=== PATIENT | female | born 1985 | race American Indian/Alaskan Native ===

== ENCOUNTER 2017-11-11 14:22 | Inpatient (IN) | payer SELFPAY ==
[2017-11-11] MEDS ORDERED: TYLENOL PO STA (15:52)
[2017-11-11] MEDS ORDERED: NACL 0.9% 500 ML 500 ML IV ONE (15:52)
[2017-11-11 16:15] LABS: Hematocrit 36.6 % (30.3-42.9); Hemoglobin 11.8 gm/dl (10.1-14.3); Mean Corpuscular HGB Conc 32 % (30-34); Mean Corpuscular Volume 76 fl (79-97); Platelet Count 282 K/mm3 (140-440); Red Blood Count 4.84 M/mm3 (3.65-5.03); Red Cell Distribution Width 18.6 % (13.2-15.2)
[2017-11-11 16:25] LABS: INR 1.03 (0.87-1.13)
[2017-11-11 16:42] LABS: Alanine Aminotransferase 8 units/L (7-56); Albumin 4.4 g/dL (3.9-5); BUN/Creatinine Ratio 11; Blood Urea Nitrogen 10 mg/dL (7-17); Calcium 9.6 mg/dL (8.4-10.2); Hemolysis Index 6
--- NOTE | 2017-11-11 16:51 | XRay Report ---
FINAL REPORT EXAM: XR CHEST 1V AP HISTORY: possible Sepsis TECHNIQUE: Frontal portable examination of the chest PRIORS: None FINDINGS: There is no visible pulmonary consolidation, pleural effusion, or pneumothorax. Cardiac silhouette size is normal without vascular congestion. No visible acute displaced fracture in the regional skeleton. IMPRESSION: No acute cardiopulmonary disease in the visualized chest
[2017-11-11 17:01] LABS: Mean Corpuscular Hemoglobin 24 pg (28-32)
--- NOTE | 2017-11-11 18:57 | Cat Scan Report ---
FINAL REPORT EXAM: CT ABDOMEN PELVIS WO CON HISTORY: RLQ pain, tenderness, fever TECHNIQUE: CT examination of the ABDOMEN without IV contrast CT examination of the PELVIS without IV contrast PRIORS: None. FINDINGS: Smoothly marginated hypodense right hepatic lobe lesions are nonspecific and statistically most likely reflect cysts and/or hemangiomas. They are too small to characterize. Normal noncontrast appearance of the gallbladder, adrenals, pancreas, and spleen. Normal caliber abdominal aorta and IVC. Right lower abdomen and upper right pelvis location of right kidney is nonspecific. This may reflect developmental variation or transplant. No definite right hydronephrosis. Sagittal images suggest 1 mm nonobstructing right renal calculus. Right ureter is obscured by adjacent anatomy. Normal noncontrast appearance of the left kidney and proximal left ureter. No left hydronephrosis. Left distal ureter obscured by adjacent anatomy. Small fat containing umbilical hernia. It also contains a short knuckle of normal-appearing small intestine. No inguinal hernia. No retroperitoneal adenopathy. No evidence of mesenteric mass. Normal-appearing stomach and duodenum. No small bowel distention in the abdomen and pelvis. No pelvic free fluid. Normal-appearing urinary bladder, uterus, and adnexa. Normal-appearing rectum and sigmoid colon. No gross ascites, free air, or colonic distention. Scattered prominence of stool and gas in the colon may reflect paralytic ileus Normal-appearing cecum and terminal ileum. The appendix is not separately identified. There is nonspecific slight fat stranding and trace free fluid in the right lower quadrant adjacent to the distal cecum. This may reflect mild inflammation or infection, although source cannot be identified at CT. The examination is limited by lack of IV and oral contrast. IMPRESSION: Appendix not separately identified. Slight fat stranding and trace free fluid in the right lower quadrant is noted adjacent to the distal cecum. This may reflect mild inflammation or infection although source not identified on noncontrast CT with examination limited by lack of IV and oral contrast Right kidney is located in the right lower abdomen/right upper pelvis. This may be developmental variation or reflect renal transplant. It appears to contain a subtle 1 mm nonobstructing calculus. No evidence of right hydronephrosis although the right ureter is obscured Small umbilical hernia containing mesenteric fat and short knuckle of normal-appearing small intestine. No CT evidence of intestinal obstruction Scattered prominence of stool and gas in the colon may reflect paralytic ileus
[2017-11-11 19:04] LABS: Monocytes % (Manual) 3.5 % (0.0-7.3); Total Cells Counted 200
[2017-11-11 19:05] LABS: Basophils % (Manual) 0 % (0.0-1.8); Eosinophils % (Manual) 0 % (0.0-4.3)
[2017-11-11 19:06] LABS: Anisocytosis 1+; Platelet Estimate Consistent w Auto
--- NOTE | 2017-11-11 21:50 | Emergency Department Report ---
ED Abdominal Pain HPI - General Chief Complaint: Abdominal Pain Stated Complaint: PAIN ALL OVER Time Seen by Provider: 11/11/17 21:47 Source: patient Mode of arrival: Ambulatory Limitations: No Limitations - History of Present Illness Initial Comments: Patient is 32 years old female with no significant past medical history. Patient presented to the ER complaining of right lower quadrant pain since yesterday. Patient stated that pain associated with nausea vomiting and fever. Patient stated that she had one episode of diarrhea also. MD Complaint: abdominal pain Location: RLQ Radiation: none Migration to: no migration Severity scale (0 -10): 6 Quality: sharp - Related Data Previous Rx's Medication Instructions Recorded Last Taken Type Penicillin Vk [Veetids TAB] 500 mg PO QID #28 tablet 12/15/14 Unknown Rx traMADol [Ultram 50 MG tab] 50 mg PO TID PRN #15 tablet 12/15/14 Unknown Rx Allergies Allergy/AdvReac Type Severity Reaction Status Date / Time No Known Allergies Allergy Unverified 12/15/14 13:39 ED Review of Systems ROS: Stated complaint: PAIN ALL OVER Other details as noted in HPI Comment: All other systems reviewed and negative Constitutional: chills, fever ENT: denies: ear pain, throat pain, dental pain, hearing loss, epistaxis Cardiovascular: denies: chest pain, palpitations, dyspnea on exertion Gastrointestinal: abdominal pain, nausea, vomiting, diarrhea. denies: constipation, hematemesis, melena, hematochezia Genitourinary: denies: urgency, dysuria, frequency, hematuria, discharge, abnormal menses Neurological: denies: headache, weakness, numbness, paresthesias, confusion, abnormal gait ED Past Medical Hx - Past Medical History Previous Medical History?: No - Surgical History Past Surgical History?: Yes Additional Surgical History: X 3 - Social History Smoking Status: Never Smoker Substance Use Type: None - Medications Home Medications: Home Medications Medication Instructions Recorded Confirmed Last Taken Type Penicillin Vk [Veetids TAB] 500 mg PO QID #28 tablet 12/15/14 Unknown Rx traMADol [Ultram 50 MG tab] 50 mg PO TID PRN #15 tablet 12/15/14 Unknown Rx ED Physical Exam - General Limitations: No Limitations General appearance: alert, in no apparent distress - Head Head exam: Present: atraumatic, normocephalic, normal inspection - Eye Eye exam: Present: normal appearance, PERRL - ENT ENT exam: Present: normal exam, normal orophraynx, mucous membranes moist - Neck Neck exam: Present: normal inspection, full ROM. Absent: tenderness, meningismus, lymphadenopathy, thyromegaly - Respiratory Respiratory exam: Present: normal lung sounds bilaterally. Absent: respiratory distress, wheezes, rales, rhonchi, stridor, chest wall tenderness, accessory muscle use, decreased breath sounds, prolonged expiratory - Cardiovascular Cardiovascular Exam: Present: regular rate, normal rhythm, normal heart sounds - GI/Abdominal GI/Abdominal exam: Present: soft, tenderness (right lower quadrant tenderness), guarding, rebound, normal bowel sounds. Absent: distended, rigid, organomegaly , mass, bruit, pulsatile mass, hernia - Extremities Exam Extremities exam: Present: normal inspection, full ROM, normal capillary refill. Absent: pedal edema, calf tenderness - Back Exam Back exam: Present: normal inspection, full ROM. Absent: tenderness, CVA tenderness (R), CVA tenderness (L), muscle spasm, paraspinal tenderness, vertebral tenderness - Neurological Exam Neurological exam: Present: alert, oriented X3, CN II-XII intact, normal gait, reflexes normal - Skin Skin exam: Present: warm, intact, normal color ED Course Vital Signs 11/11/17 11/11/17 15:47 21:22 Temperature 100.5 F H 98.5 F Pulse Rate 119 H 103 H Respiratory 18 20 Rate Blood Pressure 124/78 Blood Pressure 118/72 [Left] O2 Sat by Pulse 99 100 Oximetry ED Medical Decision Making - Lab Data Result diagrams: 11/11/17 15:55 11/11/17 15:55 - Radiology Data Radiology results: report reviewed Referring Physician: GREG ALVES Patient Name: MANAS HOYOS Date of : 1985 Sex: Female Report Date: 2017-11-11 Report Status: Finalized Findings [facility] [address] [place] [address] Cat Scan Report Signed Patient: MANAS HOYOS MR#: [id number] : 1985 Acct:[id number] Age/Sex: 32 / F ADM Date: 11/11/17 Loc: ED Attending Dr: Ordering Physician: GREG ALVES MD Date of Service: 11/11/17 Procedure(s): CT abdomen pelvis wo con Accession Number(s): [id number] cc: GREG ALVES MD FINAL REPORT EXAM: CT ABDOMEN PELVIS WO CON HISTORY: RLQ pain, tenderness, fever TECHNIQUE: CT examination of the ABDOMEN without IV contrast CT examination of the PELVIS without IV contrast PRIORS: None. FINDINGS: Smoothly marginated hypodense right hepatic lobe lesions are nonspecific and statistically most likely reflect cysts and/or hemangiomas. They are too small to characterize. Normal noncontrast appearance of the gallbladder, adrenals, pancreas, and spleen. Normal caliber abdominal aorta and IVC. Right lower abdomen and upper right pelvis location of right kidney is nonspecific. This may reflect developmental variation or transplant. No definite right hydronephrosis. Sagittal images suggest 1 mm nonobstructing right renal calculus. Right ureter is obscured by adjacent anatomy. Normal noncontrast appearance of the left kidney and proximal left ureter. No left hydronephrosis. Left distal ureter obscured by adjacent anatomy. Small fat containing umbilical hernia. It also contains a short knuckle of normal-appearing small intestine. No inguinal hernia. No retroperitoneal adenopathy. No evidence of mesenteric mass. Normal-appearing stomach and duodenum. No small bowel distention in the abdomen and pelvis. No pelvic free fluid. Normal-appearing urinary bladder, uterus, and adnexa. Normal-appearing rectum and sigmoid colon. No gross ascites, free air, or colonic distention. Scattered prominence of stool and gas in the colon may reflect paralytic ileus Normal-appearing cecum and terminal ileum. The appendix is not separately identified. There is nonspecific slight fat stranding and trace free fluid in the right lower quadrant adjacent to the distal cecum. This may reflect mild inflammation or infection, although source cannot be identified at CT. The examination is limited by lack of IV and oral contrast. IMPRESSION: Appendix not separately identified. Slight fat stranding and trace free fluid in the right lower quadrant is noted adjacent to the distal cecum. This may reflect mild inflammation or infection although source not identified on noncontrast CT with examination limited by lack of IV and oral contrast Right kidney is located in the right lower abdomen/right upper pelvis. This may be developmental variation or reflect renal transplant. It appears to contain a subtle 1 mm nonobstructing calculus. No evidence of right hydronephrosis although the right ureter is obscured Small umbilical hernia containing mesenteric fat and short knuckle of normal-appearing small intestine. No CT evidence of intestinal obstruction Scattered prominence of stool and gas in the colon may reflect paralytic ileus Transcribed By: JUDI Dictated By: RODRIGO LEMUS MD Electronically Authenticated By: RODRIGO LEMUS MD Signed Date/Time: 11/11/171855 DD/ 55 TD/TT: 11/11/171855 Referring Physician: GAMA KENDRICK Patient Name: MANAS HOYOS Date of : 1985 Sex: Female Report Date: 2017-11-12 Report Status: Finalized Findings [facility] [address] [place] [address] Cat Scan Report Signed Patient: MANAS HOYOS MR#: [id number] : 1985 Acct:[id number] Age/Sex: 32 / F ADM Date: 11/11/17 Loc: ED Attending Dr: Ordering Physician: GAMA KENDRICK Date of Service: 11/11/17 Procedure(s): CT abdomen pelvis w con Accession Number(s): [id number] cc: GAMA KENDRICK FINAL REPORT PROCEDURE: CT ABDOMEN PELVIS W CON TECHNIQUE: Computerized axial tomography of the abdomen and pelvis was performed after the IV injection of iodinated nonionic contrast. HISTORY: abdominal pain COMPARISON: 11/11/2017 FINDINGS: Visualized lower thorax: No significant abnormality. Liver: Normal size and attenuation. Spleen: Normal size and attenuation. Gallbladder and biliary system: Normal. Pancreas: Normal. Adrenals: Normal. Kidneys: The left kidney has a normal size. No hydronephrosis. The right kidney is identified within the pelvis. No hydronephrosis.. GI tract: The stomach is normal. There are a few loops of slightly dilated fluid-filled small bowel in the right lower abdomen, an ileus is suspected in this region. No obstruction is seen. Terminal ileum is normal. The cecum has a normal appearance. The appendix is normal.. Lymph nodes and mesentery: Normal. Vasculature: Normal. Bladder: Normal. Reproductive organs: A 2 centimeter cyst on the left ovary is noted. Slight fluid in the lower pelvis.. Peritoneum: Slight fluid lower pelvis.. Musculoskeletal structures: No significant abnormality. Other: None. IMPRESSION: There is no evidence of intestinal or urinary tract obstruction. A slight ileus in the right lower quadrant involving a few loops of small bowel is noted. The appendix is normal. There is a pelvic right kidney. No evidence of hydronephrosis. Transcribed By: [facility] Dictated By: AIMEE ALVES MD Electronically Authenticated By: AIMEE ALVES MD Signed Date/Time: 11/12/17122 DD/ 2 TD/TT: 11/12/17122 - Medical Decision Making Ms Hoyos is 32 years old female with no significant past medical history. Patient presented to the ER complaining of right lower quadrant pain since yesterday. Patient stated that pain associated with nausea vomiting and fever. Patient stated that she had one episode of diarrhea also. Initial CT abdomen and pelvis was done without contrast which she she'll also examination of the right lower quadrant area. I discussed the patient was Dr. Sam, he advised to do a CT abdomen and pelvis with IV and by mouth contrast. CT abdomen and pelvis showed no evidence of acute appendicitis possible ileus at right lower quadrant region. He advised to admit the patient to the hospitalist and he will see the patient in the morning. I discussed the patient was Dr. Engel also, he agreed to admit the patient to medical service. Critical Care Time: Yes Critical care time in (mins) excluding proc time.: 30 Critical care attestation.: If time is entered above; I have spent that time in minutes in the direct care of this critically ill patient, excluding procedure time. ED Disposition Clinical Impression: Abdominal pain, Ileitis Disposition: OP ADMIT IP TO THIS HOSP Is pt being admited?: Yes Condition: Stable Instructions: Abdominal Pain (ED) Referrals: DOC,ED, MD [Primary Care Provider] - 3-5 Days
[2017-11-11] MEDS ORDERED: MORPHINE IV ONE (21:56)
[2017-11-11] MEDS ORDERED: ZOFRAN IV ONE (21:56)
[2017-11-11] MEDS ORDERED: ZOSYN/NS 4.5GM/100ML 4.5 GM/100 ML VIAL IV ONE (21:56)
[2017-11-11] MEDS ORDERED: NACL 0.9% 1000 ML 1,000 ML IV ONE (21:57)
--- NOTE | 2017-11-12 01:25 | Cat Scan Report ---
FINAL REPORT PROCEDURE: CT ABDOMEN PELVIS W CON TECHNIQUE: Computerized axial tomography of the abdomen and pelvis was performed after the IV injection of iodinated nonionic contrast. HISTORY: abdominal pain COMPARISON: 11/11/2017 FINDINGS: Visualized lower thorax: No significant abnormality. Liver: Normal size and attenuation. Spleen: Normal size and attenuation. Gallbladder and biliary system: Normal. Pancreas: Normal. Adrenals: Normal. Kidneys: The left kidney has a normal size. No hydronephrosis. The right kidney is identified within the pelvis. No hydronephrosis.. GI tract: The stomach is normal. There are a few loops of slightly dilated fluid-filled small bowel in the right lower abdomen, an ileus is suspected in this region. No obstruction is seen. Terminal ileum is normal. The cecum has a normal appearance. The appendix is normal.. Lymph nodes and mesentery: Normal. Vasculature: Normal. Bladder: Normal. Reproductive organs: A 2 centimeter cyst on the left ovary is noted. Slight fluid in the lower pelvis.. Peritoneum: Slight fluid lower pelvis.. Musculoskeletal structures: No significant abnormality. Other: None. IMPRESSION: There is no evidence of intestinal or urinary tract obstruction. A slight ileus in the right lower quadrant involving a few loops of small bowel is noted. The appendix is normal. There is a pelvic right kidney. No evidence of hydronephrosis.
[2017-11-12 01:38] LABS: Bacteria,Urine 1+ /HPF (Negative); Bilirubin,Urine NEG (Negative); Blood,Urine NEG (Negative); Color,Urine Yellow (Yellow); Mucus,Urine FEW /HPF; Urobilinogen,Urine < 2.0 mg/dL (<2.0)
[2017-11-12 02:11] LABS: HCG Qualitative,Urine Negative (Negative)
[2017-11-12] MEDS ORDERED: ZOFRAN IV PRN (03:02)
--- NOTE | 2017-11-12 03:39 | History and Physical Report ---
CHIEF COMPLAINT: Abdominal pain. HISTORY OF PRESENT ILLNESS: The patient is a 32-year-old female, who presented to the Emergency Room with right lower quadrant abdominal pain going on since 11/10/2017. The pain is sharp in consistency and is associated with nausea, vomiting and diarrhea. There is also history of fever with no history of chills. There is no history of dysuria or painful micturition. The patient also denied history of dizziness, shortness of breath or chest pain. PAST MEDICAL HISTORY: Unremarkable. PAST SURGICAL HISTORY: Pertinent for C-sections x 3. FAMILY HISTORY: Noncontributory. SOCIAL HISTORY: The patient does not smoke, does not drink alcohol and does not use illicit drugs. MEDICATIONS: The patient is on penicillin VK 500 mg by mouth 4 times a day. Also, the patient is on tramadol 50 mg by mouth 3 times a day as needed for pain. ALLERGIES: There are no known drug allergies. REVIEW OF SYSTEMS: CONSTITUTIONAL: There is fever, no chills, no diaphoresis. HEENT: There is no headache or sore throat. CARDIOVASCULAR SYSTEM: There is no chest pain or orthopnea. RESPIRATORY SYSTEM: There is no shortness of breath or cough. GASTROINTESTINAL SYSTEM: There is right lower quadrant abdominal pain, nausea, vomiting and diarrhea. There is no hematochezia or hematemesis or melena. NEUROLOGICAL SYSTEM: There is no numbness, no dizziness, no altered mental status. MUSCULOSKELETAL SYSTEM: There is no joint pain or swelling. DERMATOLOGICAL SYSTEM: There is no skin rash or itching. GENITOURINARY SYSTEM: There is no dysuria, hematuria, or flank pain. Rest of system review is normal. PHYSICAL EXAMINATION: GENERAL: At the time of exam, the patient was found to be alert, oriented x 3 and not in acute distress. VITAL SIGNS: On the initial time of presentation showed temperature of 105 degrees Fahrenheit, pulse of 109, respirations 18, blood pressure 124/78, and O2 sat of 99% on room air. HEENT: Showed pupils to be equal, round, reactive to light and accommodation. Extraocular muscles are intact. NECK: Supple, with no JVD or carotid bruit. CARDIOVASCULAR SYSTEM: Showed normal first and second heart sounds with no gallops or murmurs. RESPIRATORY SYSTEM: Showed good air entry on both sides of the lungs with no abnormal breath sounds. GASTROINTESTINAL SYSTEM: Showed abdomen to be full and soft with tenderness in the right lower quadrant area. There is rebound tenderness, with no rigidity, no guarding. Bowel sounds normal. NEUROLOGIC SYSTEM: Showed no focal deficit. MUSCULOSKELETAL SYSTEM: Showed no joint swelling or tenderness. DERMATOLOGICAL SYSTEM: Showed no skin rash. GENITOURINARY SYSTEM: Showing no costovertebral angle tenderness. PERTINENT LABORATORY DATA AND IMAGING STUDIES: The patient had a CT of the abdomen and pelvis, which was done with and without contrast and CT abdomen showed normal appendix and no evidence of intestinal or urinary tract obstruction. There is finding of slight ileus in the right lower quadrant involving a few loops of small bowel. There was also a finding of pelvic right kidney with no evidence of hydronephrosis. The patient's lab results showed CBC with elevated white count of 21,500, with normal hemoglobin and normal hematocrit and CBC differential showing elevated segmented neutrophil of 88%. Coagulation studies were unremarkable. The patient's chemistry was unremarkable. Urinalysis showed normal yellow colored urine with elevated specific gravity of 1.036 with elevated urine wbc's of 33 and moderate urine leukocyte esterase with negative urine nitrites and 1+ bacteria. DIAGNOSES: 1. Acute gastroenteritis. 2. Urinary tract infection. 3. Sepsis. PLAN OF ACTION: 1. The patient will be admitted to medical surgical romero. 2. The patient will remain n.p.o. for evaluation by the surgeon. 3. The patient will continue surgical consult with Dr. Erik Sam. 4. The patient will be on IV Zosyn 4.5 grams q.8 hours. 5. The patient will be on IV morphine 2 mg every 3 hours as needed for pain and will be on IV Zofran 4 mg every 8 hours for nausea and vomiting. The patient will also be on IV normal saline running at 125 mL an hour. 6. The patient will be on IV metronidazole 500 mg every 8 hours and will be on Tylenol 650 mg by mouth every 4 hours for fever and headache. JOB# [id number] OCN/NTS
[2017-11-12] MEDS: ZOSYN/NS 4.5GM/100ML 4.5 GM/100 ML VIAL IV SCH ×3 (05:59→23:16)
[2017-11-12] MEDS ORDERED: FLAGYL 500 MG/100 ML 500 MG/100 ML BAG IV SCH (06:00)
[2017-11-12] MEDS: MORPHINE IV PRN ×2 (07:44→20:27)
[2017-11-12] MEDS: NACL 0.9% 1000 ML 1,000 ML IV SCH ×2 (08:05→14:26)
[2017-11-12 08:50] LABS: Hematocrit 32.9 % (30.3-42.9); Hemoglobin 10.5 gm/dl (10.1-14.3); Mean Corpuscular HGB Conc 32 % (30-34); Mean Corpuscular Hemoglobin 25 pg (28-32); Mean Corpuscular Volume 77 fl (79-97); Platelet Count 253 K/mm3 (140-440); Red Blood Count 4.29 M/mm3 (3.65-5.03); Red Cell Distribution Width 18.9 % (13.2-15.2)
[2017-11-12 09:17] LABS: BUN/Creatinine Ratio 11; Blood Urea Nitrogen 8 mg/dL (7-17); Calcium 8.2 mg/dL (8.4-10.2); Hemolysis Index 0
--- NOTE | 2017-11-12 09:17 | Event Note ---
Date: 11/12/17 Patient with abdominal pain, mildly distended bowel loops. I have seen and examined her. Surgeon to see.
--- NOTE | 2017-11-12 13:03 | Progress Note ---
Assessment and Plan Full consult dictated 32 y/o female cc RLQ abd pain Abd soft. RLQ tenderness with guarding CT reviewed with Dr. 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 Selected Entries 11/12/17 08:09 Temperature 99.2 F Pulse Rate 94 H Respiratory 16 Rate Blood Pressure 112/60 Laboratory Tests 11/11/17 11/12/17 15:55 08:34 WBC 21.5 H 15.3 H Hgb 11.8 10.5 Hct 36.6 32.9 Objective Vital Signs - 12hr 11/12/17 11/12/17 11/12/17 03:00 05:57 08:09 Temperature 98.6 F 99.2 F Pulse Rate 90 100 H 94 H Respiratory 18 16 16 Rate Blood Pressure 112/60 Blood Pressure 122/78 101/62 [Left] O2 Sat by Pulse 100 99 99 Oximetry - Labs 11/12/17 08:34 11/12/17 08:34 Diabetes panel 11/11/17 11/12/17 Range/Units 15:55 08:34 Sodium 140 141 (137-145) mmol/L Potassium 3.7 3.8 (3.6-5.0) mmol/L Chloride 100.7 106.6 (98-107) mmol/L Carbon Dioxide 24 25 (22-30) mmol/L BUN 10 8 (7-17) mg/dL Creatinine 0.9 0.7 (0.7-1.2) mg/dL Glucose 105 H 100 (65-100) mg/dL Calcium 9.6 8.2 L (8.4-10.2) mg/dL AST 14 (5-40) units/L ALT 8 (7-56) units/L Alkaline Phosphatase 82 (35-129) units/L Total Protein 8.8 H (6.3-8.2) g/dL Albumin 4.4 (3.9-5) g/dL Calcium panel 11/11/17 11/12/17 Range/Units 15:55 08:34 Calcium 9.6 8.2 L (8.4-10.2) mg/dL Albumin 4.4 (3.9-5) g/dL Pituitary panel 11/11/17 11/12/17 Range/Units 15:55 08:34 Sodium 140 141 (137-145) mmol/L Potassium 3.7 3.8 (3.6-5.0) mmol/L Chloride 100.7 106.6 (98-107) mmol/L Carbon Dioxide 24 25 (22-30) mmol/L BUN 10 8 (7-17) mg/dL Creatinine 0.9 0.7 (0.7-1.2) mg/dL Glucose 105 H 100 (65-100) mg/dL Calcium 9.6 8.2 L (8.4-10.2) mg/dL Adrenal panel 11/11/17 11/12/17 Range/Units 15:55 08:34 Sodium 140 141 (137-145) mmol/L Potassium 3.7 3.8 (3.6-5.0) mmol/L Chloride 100.7 106.6 (98-107) mmol/L Carbon Dioxide 24 25 (22-30) mmol/L BUN 10 8 (7-17) mg/dL Creatinine 0.9 0.7 (0.7-1.2) mg/dL Glucose 105 H 100 (65-100) mg/dL Calcium 9.6 8.2 L (8.4-10.2) mg/dL Total Bilirubin 0.70 (0.1-1.2) mg/dL AST 14 (5-40) units/L ALT 8 (7-56) units/L Alkaline Phosphatase 82 (35-129) units/L Total Protein 8.8 H (6.3-8.2) g/dL Albumin 4.4 (3.9-5) g/dL
[2017-11-12] MEDS: TYLENOL PO PRN (18:25)
--- NOTE | 2017-11-12 20:02 | Consultation ---
History of Present Illness Consult date: 11/12/17 Requesting physician: ROMAN BALBUENA Reason for consult: pelvic pain History of present illness: Ms Hoyos is 32 year old black female LMP 10/28/17 with no significant past medical history, who presented to the ER complaining of right lower quadrant pain since yesterday. She stated that her pain is associated with nausea, vomiting and fever,and had one episode of diarrhea also. Initial CT abdomen and pelvis was done without contrast which showed no evidence of acute appendicitis, but possible ileus at right lower quadrant region. Pelvic u/s showed a questionable Right hydrosalpinx vs Abscess for which I have been consulted to address. She is currently on Zosyn 4.5gm Q8H and her WBC has significantly decreased from 21.5k to 15.3k Past History Past Medical History: no pertinent history Past Surgical History: section (x3) Family/Genetic History: none Social history: no significant social history, single Medications and Allergies Allergies Allergy/AdvReac Type Severity Reaction Status Date / Time No Known Allergies Allergy Verified 11/12/17 16:14 Home Medications Medication Instructions Recorded Confirmed Last Taken Type No Known Home Medications [No 11/12/17 11/12/17 Unknown History Reported Home Medications] Active Meds: Active Medications Acetaminophen (Tylenol) 650 mg PO Q4H PRN PRN Reason: Fever >101 Last Admin: 11/12/17 18:25 Dose: 650 mg Sodium Chloride (Nacl 0.9% 1000 Ml) 1,000 mls @ 125 mls/hr IV DIRECT MARIA ANTONIA Last Admin: 11/12/17 14:26 Dose: 125 mls/hr Piperacillin Sod/Tazobactam Sod (Zosyn/Ns 4.5gm/100ml) 4.5 gm in 100 mls @ 200 mls/hr IV Q8HR MARIA ANTONIA; Protocol Last Admin: 11/12/17 14:25 Dose: 200 mls/hr Morphine Sulfate (Morphine) 2 mg IV Q3H PRN PRN Reason: Pain, Moderate (4-6) Last Admin: 11/12/17 07:44 Dose: 2 mg Ondansetron HCl (Zofran) 4 mg IV Q8H PRN PRN Reason: Nausea And Vomiting Review of Systems All systems: negative - Vital Signs Vital signs: Vital Signs Temp Pulse Resp BP Pulse Ox 100.5 F H 119 H 18 124/78 99 11/11/17 15:47 11/11/17 15:47 11/11/17 15:47 11/11/17 15:47 11/11/17 15:47 Temp Pulse Resp BP Pulse Ox 102.1 F H 104 H 22 125/69 97 11/12/17 18:18 11/12/17 18:18 11/12/17 18:18 11/12/17 18:18 11/12/17 18:18 - Physical Exam Breasts: Positive: deferred Cardiovascular: Regular rate Lungs: Positive: Clear to auscultation Abdomen: Positive: normal appearance, tenderness (RLQ) Uterus: Positive: normal size Adnexa: right: tenderness Results Result Diagrams: 11/12/17 08:34 11/12/17 08:34 Abnormal lab results 11/12/17 11/12/17 11/12/17 Range/Units 01:05 08:34 08:34 WBC 15.3 H (4.5-11.0) K/mm3 MCV 77 L (79-97) fl MCH 25 L (28-32) pg RDW 18.9 H (13.2-15.2) % Calcium 8.2 L (8.4-10.2) mg/dL Ur Specific [place] 1.036 H (1.003-1.030) Urine WBC (Auto) 33.0 H (0.0-6.0) /HPF All other labs normal. Microbiology 11/11/17 15:55 Peripheral/Venous Blood Culture - Preliminary NO GROWTH AFTER 24 HOURS 11/11/17 15:55 Peripheral/Venous Blood Culture - Preliminary NO GROWTH AFTER 24 HOURS Ultrasound: report reviewed CT scan - abdomen: report reviewed CT scan - pelvis: report reviewed Assessment and Plan - Patient Problems (1) Abdominal pain Onset Date: 11/12/17 Current Visit: Yes Status: Acute Qualifiers: Abdominal location: right lower quadrant Qualified Code(s): R10.31 - Right lower quadrant pain Plan to address problem: A: Abdominal pain - Right lower quadrant. Most likely from a pelvic infection, possible abscess - which would improve with current antibiotic treatment. Not sure that Right hydrosalpinx would present with such acute pain and elevated WBC, however conservative management would include IV antibiotics which she is already on. P: Agree with admission and Observation with current antibiotic regimen Will follow with you.
--- NOTE | 2017-11-12 20:27 | Ultrasound Report ---
FINAL REPORT PROCEDURE: US PELVIC COMPLETE TECHNIQUE: Real-time transabdominal sonography in multiple planes of pelvis was performed with image documentation. This examination was performed without Doppler. Vascular abnormalities, including ovarian torsion, will not be detectable without Doppler evaluation. CPT 65964 HISTORY: abdominal pain, look for tubo-ovarian abscess COMPARISON: No prior studies are available for comparison. FINDINGS: UTERUS Size: 11 x 5 x 6 cm. Endometrial thickness: 9 mm. Orientation: anteverted. Cervix: Normal. Fibroids/masses: None. RIGHT Ovary: 2.9 x 1.7 x 3.2 cm. Appearance: A few small cystic lesions measuring up to 2.9 Centimeters are noted in the right ovary. LEFT Ovary: 4.1 x 2.1 x 2.7 centimeters cm. Appearance: Normal. Pelvic fluid: None. Other: None. IMPRESSION: Right adnexal ovarian cystic lesion no versus a hydrosalpinx noted on the CT scan is not well delineated on the ultrasound study. A few small cystic lesions measuring up to 2.9 centimeters are noted in the right adnexal region most likely representing follicles versus cysts. However a partially visualized hydrosalpinx or a tubo-ovarian abscess cannot be excluded..
--- NOTE | 2017-11-12 20:38 | Ultrasound Report ---
FINAL REPORT PROCEDURE: US TRANSVAGINAL TECHNIQUE: Real-time transvaginal sonography in multiple planes of the pelvis was performed with image documentation. This examination was performed without Doppler. Vascular abnormalities, including ovarian torsion, will not be detectable without Doppler evaluation. CPT 38700 HISTORY: abdominal pain COMPARISON: No prior studies are available for comparison. FINDINGS: UTERUS Size: 11 x 5 x 6 cm. Endometrial thickness: 9 mm. Orientation: anteverted. Cervix: Normal. Fibroids/masses: None. RIGHT Ovary: 2.9 x 1.7 x 3.2 cm. Appearance: A few small cystic lesions measuring up to 2.9 Centimeters are noted in the right ovary. LEFT Ovary: 4.1 x 2.1 x 2.7 centimeters cm. Appearance: Normal. Pelvic fluid: None. Other: None. IMPRESSION: Right adnexal ovarian cystic lesion no versus a hydrosalpinx noted on the CT scan is not well delineated on the ultrasound study. A few small cystic lesions measuring up to 2.9 centimeters are noted in the right adnexal region most likely representing follicles versus cysts. However a partially visualized hydrosalpinx or a tubo-ovarian abscess cannot be excluded..
[2017-11-13] MEDS: NACL 0.9% 1000 ML 1,000 ML IV SCH (01:57)
--- NOTE | 2017-11-13 02:48 | Consultation ---
REASON FOR CONSULTATION: Rule out appendicitis. HISTORY OF PRESENT ILLNESS: The patient is a 32-year-old healthy female, who presented to the Emergency Room last night with a chief complaint of right lower quadrant abdominal pain accompanied by fever, nausea and vomiting. Denied any vaginal discharge or dysuria. PAST MEDICAL HISTORY: Negative. PAST SURGICAL HISTORY: Status post x 3. ALLERGIES: No known allergies. MEDICATIONS: No medications. FAMILY HISTORY: Negative. SOCIAL HISTORY: Denies any smoking or drinking. PHYSICAL EXAMINATION: GENERAL: At this time reveals the patient to be awake, alert, cooperative, in mild discomfort, but no acute distress. VITAL SIGNS: Show her to be running a low grade temperature of 99.2, blood pressure is 112/60, pulse of 94, and respirations 16. HEENT: Pupils are equal and reactive to light and accommodation. Sclerae are nonicteric. ABDOMEN: Examination of the abdomen reveals to be soft. There is, however, localized right lower quadrant tenderness with muscle guarding. Bowel sounds are hypoactive. LABORATORY DATA: Lab work at present includes a CBC, which shows a white count of 15.3 this morning, down from 21.5 on admission. The patient currently is on IV antibiotics. Electrolytes are essentially within normal limits. LFTs are also within normal limits. Urinalysis shows the urine to be just slightly cloudy. There are 33 white cells. Cultures are pending. A CT scan of the abdomen was performed, which was originally read as inconclusive. Follow up repeat CT with p.o. and IV contrast was then performed, which showed the appendix to be within normal limits. I have since reviewed the CT with Dr. Lamas by phone, who was over at [facility]. He feels that this is more national account representative of tubo-ovarian abscess with a hydrosalpinx. I have discussed this with Dr. Burden, the hospitalist. IMPRESSION: 1. At this time is that of a 32-year-old healthy female with right lower quadrant pain. 2. Rule out tubo-ovarian abscess with hydrosalpinx. 3. Doubt appendicitis at this time as there are no inflammatory changes surrounding the appendix. RECOMMENDATIONS: We would recommend MOLD HOISTER consultation. Also, we would keep the patient n.p.o. until MOLD HOISTER evaluates the patient. Also, continue current IV antibiotic treatment as it appears to be improving the patient. I will follow up with you. Thank you very much for consultation. JOB# [id number] [place]AL
[2017-11-13 06:08] LABS: Hemoglobin 9.8 gm/dl (10.1-14.3); Mean Corpuscular HGB Conc 32 % (30-34); Mean Corpuscular Volume 78 fl (79-97); Platelet Count 233 K/mm3 (140-440); Red Blood Count 3.98 M/mm3 (3.65-5.03); Red Cell Distribution Width 18.9 % (13.2-15.2)
[2017-11-13 06:13] LABS: Mean Corpuscular Hemoglobin 25 pg (28-32)
[2017-11-13] MEDS: ZOSYN/NS 4.5GM/100ML 4.5 GM/100 ML VIAL IV SCH ×3 (06:17→22:13)
[2017-11-13 06:31] LABS: BUN/Creatinine Ratio 9; Blood Urea Nitrogen 6 mg/dL (7-17); Calcium 8.3 mg/dL (8.4-10.2); Hemolysis Index 10
--- NOTE | 2017-11-13 08:19 | Progress Note ---
Assessment and Plan Assessment and plan: Pelvic inflammatory disease with tubo-ovarian abscess. Cont Zosyn Gyne following Sepsis from PID UTI. On Zosyn Full code History Interval history: Abdominal pain nausea Hospitalist Physical - Physical exam Narrative exam: GEN: Not in acute distress, lying in bed HEENT: Normocephalic, atraumatic, Neck: supple, No JVD Lungs: Clear to auscultation bilaterally, no crackles Heart:S1 and S2 reg, no murmurs, rubs or gallop Abd:soft, tender, non distended,Normal bowel sounds Ext: No edema, no clubbing, no cyanosis Neuro: Awake, alert, oriented x 3, no focal signs - Constitutional Vitals: Temp Pulse Resp BP Pulse Ox 98.2 F 96 H 18 141/81 100 11/13/17 05:57 11/13/17 05:57 11/13/17 05:57 11/13/17 05:57 11/13/17 05:57 Results - Labs CBC & Chem 7: 11/14/17 12:59 11/13/17 04:53 Labs: Laboratory Last Values WBC 12.6 K/mm3 (4.5-11.0) H 11/13/17 04:53 RBC 3.98 M/mm3 (3.65-5.03) 11/13/17 04:53 Hgb 9.8 gm/dl (10.1-14.3) L 11/13/17 04:53 Hct 31.0 % (30.3-42.9) 11/13/17 04:53 MCV 78 fl (79-97) L 11/13/17 04:53 MCH 25 pg (28-32) L 11/13/17 04:53 MCHC 32 % (30-34) 11/13/17 04:53 RDW 18.9 % (13.2-15.2) H 11/13/17 04:53 Plt Count 233 K/mm3 (140-440) 11/13/17 04:53 Add Manual Diff Complete 11/11/17 15:55 Total Counted 200 11/11/17 15:55 Seg Neuts % (Manual) 88.0 % (40.0-70.0) H 11/11/17 15:55 Band Neutrophils % 0 % 11/11/17 15:55 Lymphocytes % (Manual) 8.5 % (13.4-35.0) L 11/11/17 15:55 Reactive Lymphs % (Man) 0 % 11/11/17 15:55 Monocytes % (Manual) 3.5 % (0.0-7.3) 11/11/17 15:55 Eosinophils % (Manual) 0 % (0.0-4.3) 11/11/17 15:55 Basophils % (Manual) 0 % (0.0-1.8) 11/11/17 15:55 Metamyelocytes % 0 % 11/11/17 15:55 Myelocytes % 0 % 11/11/17 15:55 Promyelocytes % 0 % 11/11/17 15:55 Blast Cells % 0 % 11/11/17 15:55 Nucleated RBC % Not Reportable 11/11/17 15:55 Seg Neutrophils # Man 18.9 K/mm3 (1.8-7.7) H 11/11/17 15:55 Band Neutrophils # 0.0 K/mm3 11/11/17 15:55 Lymphocytes # (Manual) 1.8 K/mm3 (1.2-5.4) 11/11/17 15:55 Abs React Lymphs (Man) 0.0 K/mm3 11/11/17 15:55 Monocytes # (Manual) 0.8 K/mm3 (0.0-0.8) 11/11/17 15:55 Eosinophils # (Manual) 0.0 K/mm3 (0.0-0.4) 11/11/17 15:55 Basophils # (Manual) 0.0 K/mm3 (0.0-0.1) 11/11/17 15:55 Metamyelocytes # 0.0 K/mm3 11/11/17 15:55 Myelocytes # 0.0 K/mm3 11/11/17 15:55 Promyelocytes # 0.0 K/mm3 11/11/17 15:55 Blast Cells # 0.0 K/mm3 11/11/17 15:55 WBC Morphology Not Reportable 11/11/17 15:55 Hypersegmented Neuts Not Reportable 11/11/17 15:55 Hyposegmented Neuts Not Reportable 11/11/17 15:55 Hypogranular Neuts Not Reportable 11/11/17 15:55 Smudge Cells Not Reportable 11/11/17 15:55 Toxic Granulation Not Reportable 11/11/17 15:55 Toxic Vacuolation Not Reportable 11/11/17 15:55 Dohle Bodies Not Reportable 11/11/17 15:55 Pelger-Huet Anomaly Not Reportable 11/11/17 15:55 Neno Rods Not Reportable 11/11/17 15:55 Platelet Estimate Consistent w auto 11/11/17 15:55 Clumped Platelets Not Reportable 11/11/17 15:55 Plt Clumps, EDTA Not Reportable 11/11/17 15:55 Large Platelets Not Reportable 11/11/17 15:55 Giant Platelets Not Reportable 11/11/17 15:55 Platelet Satelliting Not Reportable 11/11/17 15:55 Plt Morphology Comment Not Reportable 11/11/17 15:55 RBC Morphology Not Reportable 11/11/17 15:55 Dimorphic RBCs Not Reportable 11/11/17 15:55 Polychromasia Not Reportable 11/11/17 15:55 Hypochromasia Not Reportable 11/11/17 15:55 Poikilocytosis Not Reportable 11/11/17 15:55 Anisocytosis 1+ 11/11/17 15:55 Microcytosis Not Reportable 11/11/17 15:55 Macrocytosis Not Reportable 11/11/17 15:55 Spherocytes Not Reportable 11/11/17 15:55 Pappenheimer Bodies Not Reportable 11/11/17 15:55 Sickle Cells Not Reportable 11/11/17 15:55 Target Cells Not Reportable 11/11/17 15:55 Tear Drop Cells Not Reportable 11/11/17 15:55 Ovalocytes Not Reportable 11/11/17 15:55 Helmet Cells Not Reportable 11/11/17 15:55 Fernandez-Melcher-[place] Bodies Not Reportable 11/11/17 15:55 Clio Rings Not Reportable 11/11/17 15:55 Garvin Cells Not Reportable 11/11/17 15:55 Bite Cells Not Reportable 11/11/17 15:55 Crenated Cell Not Reportable 11/11/17 15:55 Elliptocytes Not Reportable 11/11/17 15:55 Acanthocytes (Spur) Not Reportable 11/11/17 15:55 Rouleaux Not Reportable 11/11/17 15:55 Hemoglobin C Crystals Not Reportable 11/11/17 15:55 Schistocytes Not Reportable 11/11/17 15:55 Malaria parasites Not Reportable 11/11/17 15:55 Earl Bodies Not Reportable 11/11/17 15:55 Hem Pathologist Commnt No 11/11/17 15:55 PT 14.0 Sec. (12.2-14.9) 11/11/17 15:55 INR 1.03 (0.87-1.13) 11/11/17 15:55 VBG pH 7.417 (7.320-7.420) 11/11/17 15:55 Sodium 139 mmol/L (137-145) 11/13/17 04:53 Potassium 4.0 mmol/L (3.6-5.0) 11/13/17 04:53 Chloride 108.3 mmol/L (98-107) H 11/13/17 04:53 Carbon Dioxide 20 mmol/L (22-30) L 11/13/17 04:53 Anion Gap 15 mmol/L 11/13/17 04:53 BUN 6 mg/dL (7-17) L 11/13/17 04:53 Creatinine 0.7 mg/dL (0.7-1.2) 11/13/17 04:53 Estimated GFR > 60 ml/min 11/13/17 04:53 BUN/Creatinine Ratio 9 % 11/13/17 04:53 Glucose 66 mg/dL (65-100) 11/13/17 04:53 Lactic Acid 1.00 mmol/L (0.7-2.0) 11/11/17 18:19 Calcium 8.3 mg/dL (8.4-10.2) L 11/13/17 04:53 Total Bilirubin 0.70 mg/dL (0.1-1.2) 11/11/17 15:55 AST 14 units/L (5-40) 11/11/17 15:55 ALT 8 units/L (7-56) 11/11/17 15:55 Alkaline Phosphatase 82 units/L (35-129) 11/11/17 15:55 Total Protein 8.8 g/dL (6.3-8.2) H 11/11/17 15:55 Albumin 4.4 g/dL (3.9-5) 11/11/17 15:55 Albumin/Globulin Ratio 1.0 % 11/11/17 15:55 Urine Color Yellow (Yellow) 11/12/17 01:05 Urine Turbidity Slightly-cloudy (Clear) 11/12/17 01:05 Urine pH 5.0 (5.0-7.0) 11/12/17 01:05 Ur Specific [place] 1.036 (1.003-1.030) H 11/12/17 01:05 Urine Protein 30 mg/dl mg/dL (Negative) 11/12/17 01:05 Urine Glucose (UA) Neg mg/dL (Negative) 11/12/17 01:05 Urine Ketones 20 mg/dL (Negative) 11/12/17 01:05 Urine Blood Neg (Negative) 11/12/17 01:05 Urine Nitrite Neg (Negative) 11/12/17 01:05 Urine Bilirubin Neg (Negative) 11/12/17 01:05 Urine Urobilinogen < 2.0 mg/dL (<2.0) 11/12/17 01:05 Ur Leukocyte Esterase Mod (Negative) 11/12/17 01:05 Urine WBC (Auto) 33.0 /HPF (0.0-6.0) H 11/12/17 01:05 Urine RBC (Auto) 2.0 /HPF (0.0-6.0) 11/12/17 01:05 U Epithel Cells (Auto) 1.0 /HPF (0-13.0) 11/12/17 01:05 Urine Bacteria (Auto) 1+ /HPF (Negative) 11/12/17 01:05 Urine Mucus Few /HPF 11/12/17 01:05 Urine HCG, Qual Negative (Negative) 11/12/17 01:05
[2017-11-13] MEDS: D5NS 1,000 ML IV SCH (12:27)
--- NOTE | 2017-11-13 12:34 | Progress Note ---
Assessment and Plan Pt status quo Abd - slightly less tenderness noted in RLQ but still present wbc down hand spring former eval noted - r/o TOA & PID po diet attempt as per hand spring former will follow prn Selected Entries 11/12/17 11/13/17 18:18 05:57 Temperature 102.1 F H 98.2 F Pulse Rate 96 H Respiratory 18 Rate Blood Pressure 141/81 Laboratory Tests 11/11/17 11/12/17 11/13/17 15:55 08:34 04:53 WBC 21.5 H 15.3 H 12.6 H Hgb 9.8 L Hct 31.0 Objective Vital Signs - 12hr 11/13/17 05:57 Temperature 98.2 F Pulse Rate 96 H Respiratory 18 Rate Blood Pressure 141/81 O2 Sat by Pulse 100 Oximetry - Labs 11/13/17 04:53 11/13/17 04:53 Diabetes panel 11/13/17 Range/Units 04:53 Sodium 139 (137-145) mmol/L Potassium 4.0 (3.6-5.0) mmol/L Chloride 108.3 H (98-107) mmol/L Carbon Dioxide 20 L (22-30) mmol/L BUN 6 L (7-17) mg/dL Creatinine 0.7 (0.7-1.2) mg/dL Glucose 66 (65-100) mg/dL Calcium 8.3 L (8.4-10.2) mg/dL Calcium panel 11/13/17 Range/Units 04:53 Calcium 8.3 L (8.4-10.2) mg/dL Pituitary panel 11/13/17 Range/Units 04:53 Sodium 139 (137-145) mmol/L Potassium 4.0 (3.6-5.0) mmol/L Chloride 108.3 H (98-107) mmol/L Carbon Dioxide 20 L (22-30) mmol/L BUN 6 L (7-17) mg/dL Creatinine 0.7 (0.7-1.2) mg/dL Glucose 66 (65-100) mg/dL Calcium 8.3 L (8.4-10.2) mg/dL Adrenal panel 11/13/17 Range/Units 04:53 Sodium 139 (137-145) mmol/L Potassium 4.0 (3.6-5.0) mmol/L Chloride 108.3 H (98-107) mmol/L Carbon Dioxide 20 L (22-30) mmol/L BUN 6 L (7-17) mg/dL Creatinine 0.7 (0.7-1.2) mg/dL Glucose 66 (65-100) mg/dL Calcium 8.3 L (8.4-10.2) mg/dL
[2017-11-13] MEDS: TYLENOL PO PRN (14:07)
--- NOTE | 2017-11-13 19:58 | Progress Note ---
Assessment and Plan - Patient Problems (1) Abdominal pain Onset Date: 11/12/17 Current Visit: Yes Status: Acute Qualifiers: Abdominal location: right lower quadrant Qualified Code(s): R10.31 - Right lower quadrant pain Plan to address problem: A: Abdominal pain - Right lower quadrant. Most likely from a pelvic infection ( PID), possible abscess - improving with current antibiotic treatment. P: Continue with current antibiotic regimen Advance diet as tolerated Subjective - Subjective Date of service: 11/13/17 Principal diagnosis: Suspected PID; TOA Interval history: Pt states she is feeling much better. Pain has improved, and no further nausea or vomiting. She wants to eat. Patient reports: voiding normally, pain well controlled, no nauseated Objective - Vital Signs Latest vital signs: Vital Signs Temp Pulse Resp BP Pulse Ox 11/13/17 16:29 98.0 F 95 H 15 121/76 99 11/13/17 14:07 20 11/13/17 13:33 101.2 F H 104 H 16 134/83 99 11/13/17 05:57 98.2 F 96 H 18 141/81 100 11/12/17 23:44 98.4 F 89 16 115/57 100 11/12/17 22:00 16 11/12/17 20:27 20 Intake and Output 11/13/17 11/13/17 11/13/17 06:59 14:59 22:59 Intake Total 1050 Balance 1050 Intake: IV 200 ZOSYN/NS 4.5GM/100ML 4.5 200 gm In 100 ml @ 200 mls/hr IV Q8HR MARIA ANTONIA Rx#: [id number] Intake, Free Water 850 Other: Voiding Method Toilet # Voids Void 1 Weight 62 kg - Exam Abdomen: Present: normal appearance, soft, tenderness (RLQ) Uterus: Present: normal - Labs Labs: Abnormal lab results 11/13/17 11/13/17 Range/Units 04:53 04:53 WBC 12.6 H (4.5-11.0) K/mm3 Hgb 9.8 L (10.1-14.3) gm/dl MCV 78 L (79-97) fl MCH 25 L (28-32) pg RDW 18.9 H (13.2-15.2) % Chloride 108.3 H (98-107) mmol/L Carbon Dioxide 20 L (22-30) mmol/L BUN 6 L (7-17) mg/dL Calcium 8.3 L (8.4-10.2) mg/dL Laboratory Results - last 24 hr 11/13/17 11/13/17 04:53 04:53 WBC 12.6 H RBC 3.98 Hgb 9.8 L Hct 31.0 MCV 78 L MCH 25 L MCHC 32 RDW 18.9 H Plt Count 233 Sodium 139 Potassium 4.0 Chloride 108.3 H Carbon Dioxide 20 L Anion Gap 15 BUN 6 L Creatinine 0.7 Estimated GFR > 60 BUN/Creatinine Ratio 9 Glucose 66 Calcium 8.3 L Microbiology 11/11/17 15:55 Peripheral/Venous Blood Culture - Preliminary NO GROWTH AFTER 48 HOURS 11/11/17 15:55 Peripheral/Venous Blood Culture - Preliminary NO GROWTH AFTER 48 HOURS 11/12/17 01:04 Urine,Clean Catch Urine Culture - Preliminary
[2017-11-13] MEDS: MORPHINE IV PRN (22:27)
[2017-11-14] MEDS: D5NS 1,000 ML IV SCH ×2 (05:47→18:43)
[2017-11-14] MEDS: ZOSYN/NS 4.5GM/100ML 4.5 GM/100 ML VIAL IV SCH ×3 (06:00→21:39)
[2017-11-14 13:23] LABS: Hemoglobin 9.7 gm/dl (10.1-14.3); Mean Corpuscular HGB Conc 33 % (30-34); Mean Corpuscular Volume 77 fl (79-97); Platelet Count 299 K/mm3 (140-440); Red Blood Count 3.91 M/mm3 (3.65-5.03); Red Cell Distribution Width 18.5 % (13.2-15.2)
[2017-11-14 13:25] LABS: Mean Corpuscular Hemoglobin 25 pg (28-32)
--- NOTE | 2017-11-14 16:20 | Progress Note ---
Assessment and Plan - Patient Problems (1) Abdominal pain Onset Date: 11/12/17 Current Visit: Yes Status: Acute Qualifiers: Abdominal location: right lower quadrant Qualified Code(s): R10.31 - Right lower quadrant pain Plan to address problem: A: Abdominal pain - Right lower quadrant. Most likely from a pelvic infection ( PID), possible abscess - improved with current antibiotic treatment. P: Continue with current antibiotic regimen - switch to PO Advance diet as tolerated Anticipate discharge tomorrow Will sign off. Subjective - Subjective Date of service: 11/14/17 Principal diagnosis: Suspected PID; TOA Interval history: Pt states she is feeling much better. Pain has improved, and no further nausea or vomiting. Tolerating a reg diet witout nausea or vomiting. Patient reports: appetite normal, voiding normally, pain well controlled, ambulating normally, no dizzy ambulation, no nauseated Objective - Vital Signs Latest vital signs: Vital Signs Temp Pulse Resp BP Pulse Ox 11/14/17 11:30 99.0 F 79 16 124/90 99 11/14/17 06:10 98.8 F 83 18 112/67 98 11/13/17 23:16 98.8 F 100 H 18 107/64 99 11/13/17 16:29 98.0 F 95 H 15 121/76 99 Intake and Output 11/14/17 11/14/17 11/14/17 06:59 14:59 22:59 Intake Total 950 590 Balance 950 590 Intake: IV 100 ZOSYN/NS 4.5GM/100ML 4.5 100 gm In 100 ml @ 200 mls/hr IV Q8HR [facility] Rx#: [id number] Oral 850 590 Other: Total, Intake Amount 850 310 Voiding Method Toilet Toilet # Voids Void 2 2 # Bowel Movements 0 0 Weight 67 kg - Exam Abdomen: Present: normal appearance, soft - Labs Labs: Abnormal lab results 11/14/17 Range/Units 12:59 Hgb 9.7 L (10.1-14.3) gm/dl Hct 30.0 L (30.3-42.9) % MCV 77 L (79-97) fl MCH 25 L (28-32) pg RDW 18.5 H (13.2-15.2) % Laboratory Results - last 24 hr 11/14/17 12:59 WBC 7.7 RBC 3.91 Hgb 9.7 L Hct 30.0 L MCV 77 L MCH 25 L MCHC 33 RDW 18.5 H Plt Count 299 Microbiology 11/11/17 15:55 Peripheral/Venous Blood Culture - Preliminary NO GROWTH AFTER 72 HOURS 11/12/17 01:04 Urine,Clean Catch Urine Culture - Final 11/11/17 15:55 Peripheral/Venous Blood Culture - Preliminary NO GROWTH AFTER 48 HOURS
--- NOTE | 2017-11-14 17:57 | Progress Note ---
Assessment and Plan Assessment and plan: Pelvic inflammatory disease with tubo-ovarian abscess. Cont Zosyn Gyne following started on clear liquid diet discussed with Dr. Hoyos, Gyne Sepsis from PID and UTI Cont Zosyn No growth on cultures UTI. On Zosyn Ileus. On clear liquid Full code History Interval history: less abdominal pain nausea Started on clear liquid diet Hospitalist Physical - Physical exam Narrative exam: GEN: Not in acute distress, lying in bed HEENT: Normocephalic, atraumatic, Neck: supple, No JVD Lungs: Clear to auscultation bilaterally, no crackles Heart:S1 and S2 reg, no murmurs, rubs or gallop Abd:soft, tender, non distended,Normal bowel sounds Ext: No edema, no clubbing, no cyanosis Neuro: Awake, alert, oriented x 3, no focal signs - Constitutional Vitals: Temp Pulse Resp BP Pulse Ox 98.5 F 78 16 111/66 100 11/14/17 17:07 11/14/17 17:07 11/14/17 17:07 11/14/17 17:07 11/14/17 17:07 Results - Labs CBC & Chem 7: 11/14/17 12:59 11/13/17 04:53 Labs: Laboratory Last Values WBC 7.7 K/mm3 (4.5-11.0) 11/14/17 12:59 RBC 3.91 M/mm3 (3.65-5.03) 11/14/17 12:59 Hgb 9.7 gm/dl (10.1-14.3) L 11/14/17 12:59 Hct 30.0 % (30.3-42.9) L 11/14/17 12:59 MCV 77 fl (79-97) L 11/14/17 12:59 MCH 25 pg (28-32) L 11/14/17 12:59 MCHC 33 % (30-34) 11/14/17 12:59 RDW 18.5 % (13.2-15.2) H 11/14/17 12:59 Plt Count 299 K/mm3 (140-440) 11/14/17 12:59 Add Manual Diff Complete 11/11/17 15:55 Total Counted 200 11/11/17 15:55 Seg Neuts % (Manual) 88.0 % (40.0-70.0) H 11/11/17 15:55 Band Neutrophils % 0 % 11/11/17 15:55 Lymphocytes % (Manual) 8.5 % (13.4-35.0) L 11/11/17 15:55 Reactive Lymphs % (Man) 0 % 11/11/17 15:55 Monocytes % (Manual) 3.5 % (0.0-7.3) 11/11/17 15:55 Eosinophils % (Manual) 0 % (0.0-4.3) 11/11/17 15:55 Basophils % (Manual) 0 % (0.0-1.8) 11/11/17 15:55 Metamyelocytes % 0 % 11/11/17 15:55 Myelocytes % 0 % 11/11/17 15:55 Promyelocytes % 0 % 11/11/17 15:55 Blast Cells % 0 % 11/11/17 15:55 Nucleated RBC % Not Reportable 11/11/17 15:55 Seg Neutrophils # Man 18.9 K/mm3 (1.8-7.7) H 11/11/17 15:55 Band Neutrophils # 0.0 K/mm3 11/11/17 15:55 Lymphocytes # (Manual) 1.8 K/mm3 (1.2-5.4) 11/11/17 15:55 Abs React Lymphs (Man) 0.0 K/mm3 11/11/17 15:55 Monocytes # (Manual) 0.8 K/mm3 (0.0-0.8) 11/11/17 15:55 Eosinophils # (Manual) 0.0 K/mm3 (0.0-0.4) 11/11/17 15:55 Basophils # (Manual) 0.0 K/mm3 (0.0-0.1) 11/11/17 15:55 Metamyelocytes # 0.0 K/mm3 11/11/17 15:55 Myelocytes # 0.0 K/mm3 11/11/17 15:55 Promyelocytes # 0.0 K/mm3 11/11/17 15:55 Blast Cells # 0.0 K/mm3 11/11/17 15:55 WBC Morphology Not Reportable 11/11/17 15:55 Hypersegmented Neuts Not Reportable 11/11/17 15:55 Hyposegmented Neuts Not Reportable 11/11/17 15:55 Hypogranular Neuts Not Reportable 11/11/17 15:55 Smudge Cells Not Reportable 11/11/17 15:55 Toxic Granulation Not Reportable 11/11/17 15:55 Toxic Vacuolation Not Reportable 11/11/17 15:55 Dohle Bodies Not Reportable 11/11/17 15:55 Pelger-Huet Anomaly Not Reportable 11/11/17 15:55 Neno Rods Not Reportable 11/11/17 15:55 Platelet Estimate Consistent w auto 11/11/17 15:55 Clumped Platelets Not Reportable 11/11/17 15:55 Plt Clumps, EDTA Not Reportable 11/11/17 15:55 Large Platelets Not Reportable 11/11/17 15:55 Giant Platelets Not Reportable 11/11/17 15:55 Platelet Satelliting Not Reportable 11/11/17 15:55 Plt Morphology Comment Not Reportable 11/11/17 15:55 RBC Morphology Not Reportable 11/11/17 15:55 Dimorphic RBCs Not Reportable 11/11/17 15:55 Polychromasia Not Reportable 11/11/17 15:55 Hypochromasia Not Reportable 11/11/17 15:55 Poikilocytosis Not Reportable 11/11/17 15:55 Anisocytosis 1+ 11/11/17 15:55 Microcytosis Not Reportable 11/11/17 15:55 Macrocytosis Not Reportable 11/11/17 15:55 Spherocytes Not Reportable 11/11/17 15:55 Pappenheimer Bodies Not Reportable 11/11/17 15:55 Sickle Cells Not Reportable 11/11/17 15:55 Target Cells Not Reportable 11/11/17 15:55 Tear Drop Cells Not Reportable 11/11/17 15:55 Ovalocytes Not Reportable 11/11/17 15:55 Helmet Cells Not Reportable 11/11/17 15:55 [place] Bodies Not Reportable 11/11/17 15:55 [place] Rings Not Reportable 11/11/17 15:55 [place] Cells Not Reportable 11/11/17 15:55 Bite Cells Not Reportable 11/11/17 15:55 Crenated Cell Not Reportable 11/11/17 15:55 Elliptocytes Not Reportable 11/11/17 15:55 Acanthocytes (Spur) Not Reportable 11/11/17 15:55 Rouleaux Not Reportable 11/11/17 15:55 Hemoglobin C Crystals Not Reportable 11/11/17 15:55 Schistocytes Not Reportable 11/11/17 15:55 Malaria parasites Not Reportable 11/11/17 15:55 Earl Bodies Not Reportable 11/11/17 15:55 Hem Pathologist Commnt No 11/11/17 15:55 PT 14.0 Sec. (12.2-14.9) 11/11/17 15:55 INR 1.03 (0.87-1.13) 11/11/17 15:55 VBG pH 7.417 (7.320-7.420) 11/11/17 15:55 Sodium 139 mmol/L (137-145) 11/13/17 04:53 Potassium 4.0 mmol/L (3.6-5.0) 11/13/17 04:53 Chloride 108.3 mmol/L (98-107) H 11/13/17 04:53 Carbon Dioxide 20 mmol/L (22-30) L 11/13/17 04:53 Anion Gap 15 mmol/L 11/13/17 04:53 BUN 6 mg/dL (7-17) L 11/13/17 04:53 Creatinine 0.7 mg/dL (0.7-1.2) 11/13/17 04:53 Estimated GFR > 60 ml/min 11/13/17 04:53 BUN/Creatinine Ratio 9 % 11/13/17 04:53 Glucose 66 mg/dL (65-100) 11/13/17 04:53 Lactic Acid 1.00 mmol/L (0.7-2.0) 11/11/17 18:19 Calcium 8.3 mg/dL (8.4-10.2) L 11/13/17 04:53 Total Bilirubin 0.70 mg/dL (0.1-1.2) 11/11/17 15:55 AST 14 units/L (5-40) 11/11/17 15:55 ALT 8 units/L (7-56) 11/11/17 15:55 Alkaline Phosphatase 82 units/L (35-129) 11/11/17 15:55 Total Protein 8.8 g/dL (6.3-8.2) H 11/11/17 15:55 Albumin 4.4 g/dL (3.9-5) 11/11/17 15:55 Albumin/Globulin Ratio 1.0 % 11/11/17 15:55 Urine Color Yellow (Yellow) 11/12/17 01:05 Urine Turbidity Slightly-cloudy (Clear) 11/12/17 01:05 Urine pH 5.0 (5.0-7.0) 11/12/17 01:05 Ur Specific [place] 1.036 (1.003-1.030) H 11/12/17 01:05 Urine Protein 30 mg/dl mg/dL (Negative) 11/12/17 01:05 Urine Glucose (UA) Neg mg/dL (Negative) 11/12/17 01:05 Urine Ketones 20 mg/dL (Negative) 11/12/17 01:05 Urine Blood Neg (Negative) 11/12/17 01:05 Urine Nitrite Neg (Negative) 11/12/17 01:05 Urine Bilirubin Neg (Negative) 11/12/17 01:05 Urine Urobilinogen < 2.0 mg/dL (<2.0) 11/12/17 01:05 Ur Leukocyte Esterase Mod (Negative) 11/12/17 01:05 Urine WBC (Auto) 33.0 /HPF (0.0-6.0) H 11/12/17 01:05 Urine RBC (Auto) 2.0 /HPF (0.0-6.0) 11/12/17 01:05 U Epithel Cells (Auto) 1.0 /HPF (0-13.0) 11/12/17 01:05 Urine Bacteria (Auto) 1+ /HPF (Negative) 11/12/17 01:05 Urine Mucus Few /HPF 11/12/17 01:05 Urine HCG, Qual Negative (Negative) 11/12/17 01:05
[2017-11-15] MEDS: ZOSYN/NS 4.5GM/100ML 4.5 GM/100 ML VIAL IV SCH (06:00)
[2017-11-15] MEDS: D5NS 1,000 ML IV SCH (06:16)
--- NOTE | 2017-11-15 10:43 | Discharge Summary ---
Providers - Providers Date of Admission: 11/12/17 06:00 Date of discharge: 11/15/17 Attending physician: ROMAN BALBUENA 11/12/17 01:37 Consult to Physician [CONS] Stat Comment: Dr. Cuellar spoke with Dr. Sam @ 0136 Consulting Provider: BESSY SAM Physician Instructions: Reason For Exam: abdominal pain 11/12/17 14:33 Consult to Physician [CONS] Routine Comment: Consulting Provider: LORRAINE HOYOS Physician Instructions: Reason For Exam: Abdominal pain, poss tubo-ovarian abscess Primary care physician: ED DOC Hospitalization Condition: Fair Disposition: DC-01 TO HOME OR SELFCARE Core Measure Documentation - Palliative Care Palliative Care/ Comfort Measures: Not Applicable - Core Measures Any of the following diagnoses?: none Exam - Constitutional Vitals: Temp Pulse Resp BP Pulse Ox 98.1 F 77 18 122/81 100 11/15/17 06:03 11/15/17 06:03 11/15/17 06:03 11/15/17 06:03 11/15/17 06:03 Plan Activity: no restrictions Diet: low fat, low cholesterol, low salt Additional Instructions: 1. Follow up with Primary care physician or [facility] in one week. 2. Follow up with glued wood tester Dr. Paul Hoyos in 1 week Follow up with: SARA,ED, MD [Primary Care Provider] - 3-5 Days Prescriptions: Doxycycline [Vibramycin CAP] 100 mg PO Q12HR 5 Days capsule metroNIDAZOLE [Flagyl] 500 mg PO Q8HR 5 Days tablet
[2017-11-15 12:15] VITALS: BP 133/90
== END 2017-11-15 13:30 | disposition home or self-care (01) | DRG 872 ==
LOC: ED 14:22 → 3A 11-12 06:00
PROVIDERS: ADMIT Internal Medicine; ATTEND Internal Medicine
DX: A41.9 Sepsis, unspecified organism (principal); N39.0 Urinary tract infection, site not specified; K56.7 Ileus, unspecified; K52.9 Noninfective gastroenteritis and colitis, unspecified; N73.9 Female pelvic inflammatory disease, unspecified; N70.93 Salpingitis and oophoritis, unspecified
CPT/HCPCS: 36415; 71045; 74176; 74177; 76830; 76856; 80048; 80053; 81001; 81025; 82140; 82805; 85007; 85025; 85027; 85610; 87040; 87086; 93005; 93010; 96365; 96375; J2270; J2405; J2543; J7030; J7042; Q9967

== ENCOUNTER 2018-02-25 16:48 | Inpatient (IN) | payer SELFPAY ==
[2018-02-25] MEDS ORDERED: NACL 0.9% 1000 ML 1,000 ML IV ONE ×2 (17:12→21:00)
[2018-02-25 17:33] LABS: Basophils # (Auto) 0.1 K/mm3 (0.0-0.1); Basophils % (Auto) 0.6 % (0.0-1.8); Eosinophils % (Auto) 0.1 % (0.0-4.3); Hematocrit 38.1 % (30.3-42.9); Hemoglobin 12.3 gm/dl (10.1-14.3); Lymphocytes # (Auto) 1.2 K/mm3 (1.2-5.4); Lymphocytes % (Auto) 10.7 % (13.4-35.0); Mean Corpuscular HGB Conc 32 % (30-34); Mean Corpuscular Volume 79 fl (79-97); Monocytes # (Auto) 0.5 K/mm3 (0.0-0.8); Monocytes % (Auto) 4.2 % (0.0-7.3); Platelet Count 262 K/mm3 (140-440); Red Blood Count 4.85 M/mm3 (3.65-5.03); Red Cell Distribution Width 17.3 % (13.2-15.2)
[2018-02-25 17:49] LABS: Alanine Aminotransferase 8 units/L (7-56); Albumin 4.4 g/dL (3.9-5); BUN/Creatinine Ratio 14; Blood Urea Nitrogen 11 mg/dL (7-17); Calcium 9.3 mg/dL (8.4-10.2); Hemolysis Index 0
[2018-02-25 18:24] LABS: Bacteria,Urine 4+ /HPF (Negative); Bilirubin,Urine NEG (Negative); Blood,Urine SM (Negative); Color,Urine Amber (Yellow); Mucus,Urine 1+ /HPF
[2018-02-25 18:32] LABS: WBC,Urine > 182.0 /HPF (0.0-6.0)
[2018-02-25] MEDS ORDERED: ZOFRAN IV ONE (20:43)
[2018-02-25] MEDS ORDERED: TORADOL IV ONE (20:43)
[2018-02-25] MEDS ORDERED: ROCEPHIN IM ONE (21:39)
--- NOTE | 2018-02-25 21:39 | Emergency Department Report ---
ED Abdominal Pain HPI - General Chief Complaint: Abdominal Pain Stated Complaint: (R) SIDE PAIN Time Seen by Provider: 02/25/18 20:35 Source: patient Mode of arrival: Ambulatory Limitations: No Limitations - History of Present Illness Initial Comments: Patient is a 32 over number female who presents for right lower quadrant pain 4 days history of same 1 week ago diagnoses UTI patient did not completely antibiotic regimen pain at this time is described as 7/10 aching exacerbated by movement there is no n/v pt is tolerating po intake does endorse nausea and urinary frequency. MD Complaint: abdominal pain Onset/Timin -: week(s) Location: RLQ Radiation: RLQ Migration to: RLQ Severity: moderate Severity scale (0 -10): 7 Quality: sharp Consistency: intermittent Improves With: nothing Worsens With: movement Associated Symptoms: nausea Treatments Prior to Arrival: NSAIDs - Related Data LMP Date: 02/23/18 Previous Rx's Medication Instructions Recorded Last Taken Type Doxycycline [Vibramycin CAP] 100 mg PO Q12HR 5 Days capsule 11/15/17 Unknown Rx Promethazine [Phenergan TAB] 25 mg PO Q6HR PRN #20 tab 11/15/17 Unknown Rx metroNIDAZOLE [Flagyl] 500 mg PO Q8HR 5 Days tablet 11/15/17 Unknown Rx traMADol [Ultram 50 MG tab] 50 mg PO Q6HR PRN #10 tablet 11/15/17 Unknown Rx Allergies Allergy/AdvReac Type Severity Reaction Status Date / Time No Known Allergies Allergy Verified 11/12/17 16:14 ED Review of Systems ROS: Stated complaint: (R) SIDE PAIN Other details as noted in HPI Constitutional: malaise. denies: chills, fever Eyes: denies: eye pain, eye discharge, vision change ENT: denies: ear pain, throat pain Respiratory: denies: cough, shortness of breath, wheezing Cardiovascular: denies: chest pain, palpitations Endocrine: no symptoms reported Gastrointestinal: abdominal pain, nausea Genitourinary: frequency. denies: urgency, dysuria, discharge Musculoskeletal: denies: back pain, joint swelling, arthralgia Skin: denies: rash, lesions Neurological: denies: headache, weakness, paresthesias Psychiatric: denies: anxiety, depression Hematological/Lymphatic: denies: easy bleeding, easy bruising ED Past Medical Hx - Past Medical History Previous Medical History?: No Hx Asthma: No - Surgical History Past Surgical History?: Yes Additional Surgical History: X 3 - Social History Smoking Status: Never Smoker Substance Use Type: None - Medications Home Medications: Home Medications Medication Instructions Recorded Confirmed Last Taken Type Doxycycline [Vibramycin CAP] 100 mg PO Q12HR 5 Days capsule 11/15/17 Unknown Rx Promethazine [Phenergan TAB] 25 mg PO Q6HR PRN #20 tab 11/15/17 Unknown Rx metroNIDAZOLE [Flagyl] 500 mg PO Q8HR 5 Days tablet 11/15/17 Unknown Rx traMADol [Ultram 50 MG tab] 50 mg PO Q6HR PRN #10 tablet 11/15/17 Unknown Rx ED Physical Exam - General Limitations: No Limitations General appearance: alert, in no apparent distress - Head Head exam: Present: atraumatic, normocephalic - Eye Eye exam: Present: normal appearance, PERRL, EOMI Pupils: Present: normal accommodation - ENT ENT exam: Present: normal exam, mucous membranes moist - Neck Neck exam: Present: normal inspection, full ROM. Absent: tenderness, meningismus, lymphadenopathy, thyromegaly - Respiratory Respiratory exam: Present: normal lung sounds bilaterally. Absent: respiratory distress, wheezes, stridor, chest wall tenderness - Cardiovascular Cardiovascular Exam: Present: regular rate, normal rhythm, normal heart sounds. Absent: systolic murmur, diastolic murmur, rubs, gallop - GI/Abdominal GI/Abdominal exam: Present: tenderness (RLQ ), guarding (mild guarding RLQ and Right Flank), normal bowel sounds. Absent: rebound, rigid, organomegaly, mass, bruit, hernia - Expanded GI/Abdominal Exam Expanded GI/Abdominal exam: Present: psoas sign, obturator sign, heel tap sign, tenderness at [place]. Absent: Lackey's sign, Rovsing's sign, ascites - Rectal Rectal exam: Present: deferred - External exam: Present: normal external exam Speculum exam: Present: erythema, vaginal discharge (white thick malodorous ). Absent: cervical discharge, vaginal bleeding, foreign body, tissue, laceration Bi-manual exam: Present: cervical motion tendernes, adnexal tenderness - Extremities Exam Extremities exam: Present: normal inspection - Back Exam Back exam: Present: normal inspection, full ROM, CVA tenderness (R). Absent: muscle spasm, rash noted - Neurological Exam Neurological exam: Present: alert, oriented X3 - Psychiatric Psychiatric exam: Present: normal affect, normal mood - Skin Skin exam: Present: warm, dry, intact, normal color. Absent: rash ED Course Vital Signs 02/25/18 17:09 Temperature 98.9 F Pulse Rate 103 H Respiratory 16 Rate Blood Pressure 111/63 O2 Sat by Pulse 100 Oximetry ED Medical Decision Making - Lab Data Result diagrams: 02/25/18 17:23 02/25/18 17:23 Labs 02/25/18 02/25/18 02/25/18 17:23 17:23 17:34 WBC 11.5 H RBC 4.85 Hgb 12.3 Hct 38.1 MCV 79 MCH 25 L MCHC 32 RDW 17.3 H Plt Count 262 Lymph % (Auto) 10.7 L [place] % (Auto) 4.2 Eos % (Auto) 0.1 Baso % (Auto) 0.6 Lymph # 1.2 [place] # 0.5 Eos # 0.0 Baso # 0.1 Seg Neutrophils % 84.4 H Seg Neutrophils # 9.7 H Sodium 139 Potassium 3.4 L Chloride 99.2 Carbon Dioxide 29 Anion Gap 14 BUN 11 Creatinine 0.8 Estimated GFR > 60 BUN/Creatinine Ratio 14 Glucose 148 H Calcium 9.3 Total Bilirubin 0.80 AST 13 ALT 8 Alkaline Phosphatase 74 Total Protein 7.8 Albumin 4.4 Albumin/Globulin Ratio 1.3 Urine Color [place] Urine Turbidity Turbid Urine pH 5.0 Ur Specific [place] 1.024 Urine Protein 100 mg/dl Urine Glucose (UA) 50 Urine Ketones 80 Urine Blood Sm Urine Nitrite Neg Urine Bilirubin Neg Urine Urobilinogen 4.0 Ur Leukocyte Esterase Lg Urine WBC (Auto) > 182.0 H Urine RBC (Auto) 90.0 U Epithel Cells (Auto) 24.0 H Urine Bacteria (Auto) 4+ Urine WBC Clumps 3+ Urine Mucus 1+ Urine Yeast (Budding) 3+ - Radiology Data Radiology results: report reviewed, image reviewed FINAL REPORT EXAM: CT ABDOMEN PELVIS WO CON HISTORY: abd pain TECHNIQUE: Helical CT scan through the abdomen and pelvis without contrast. Images are reconstructed in the sagittal and coronal planes. PRIORS: CT scan from 11/11/2017 and pelvic ultrasound from 11/12/2017 FINDINGS: Solid organ and bowel evaluation is limited without intravenous contrast. Bowel evaluation is limited without oral contrast. The lung bases are clear. The liver, gallbladder, pancreas, spleen and adrenal glands appear normal. The kidneys appear grossly normal. The right kidney is in the pelvis and left kidneys in its expected location. As previously demonstrated the uterus is enlarged. Presently, there air and fluid in the vagina. There is a complex cystic lesion in the right lower quadrant with adjacent mild fat edema. The appearance is similar to the previous exam. It is located just inferior to the cecum. The appendix is not discretely visualized. The stomach appears grossly within normal limits. There are no abnormally dilated loops of bowel. The abdominal aorta has a normal diameter. The bones and subcutaneous soft tissues are unremarkable for age. IMPRESSION: 1. Complex cystic lesion in the right lower quadrant immediately beneath the cecum. There is a small amount of free fluid. The appearance is similar to that demonstrated on the comparison exam and is nonspecific either representing a complex ovarian lesion, a hydrosalpinx or pyosalpinx. Appendicitis is also in the differential diagnosis the considered to be less likely. Recommend further evaluation with ultrasound of the pelvis and right lower quadrant/appendix. 2. Right pelvic kidney Transcribed By: MLG Dictated By: KATHRYN PARR MD Electronically Authenticated By: KATHRYN PARR MD Signed Date/Time: 02/25/18 [address] [place] [address] Cat Scan Report Signed Patient: MANAS HAJI MR#: [id number] : 1985 Acct:[id number] Age/Sex: 32 / F ADM Date: 02/25/18 Loc: ED Attending Dr: Ordering Physician: DANI MENDENHALL NP Date of Service: 02/26/18 Procedure(s): CT abdomen pelvis w con Accession Number(s): [id number] cc: DANI MENDENHALL NP FINAL REPORT PROCEDURE: CT ABDOMEN PELVIS W CON TECHNIQUE: Computerized axial tomography of the abdomen and pelvis was performed after the IV injection of iodinated nonionic contrast. HISTORY: abdominal pain COMPARISON: 02/25/2018 FINDINGS: Visualized lower thorax: No significant abnormality. Liver: Normal size and attenuation. Spleen: Normal size and attenuation. Gallbladder and biliary system: Normal. Pancreas: Normal. Adrenals: Normal. Kidneys: The right kidney is pelvic.. GI tract: There is no bowel obstruction, colitis or enteritis. The appendix is normal.. Lymph nodes and mesentery: Normal. Vasculature: Normal. Bladder: Normal. Reproductive organs: Uterus is prominent. There is an involuting cyst in the left ovary measuring 2.2 centimeters. There is an involuting cyst in the right ovary measuring 3 centimeters.. Remote possibility of tubo-ovarian abscess not excluded. There is a fluid-filled tubular structure adjacent to the right ovary which could be hydrosalpinx or pyosalpinx. Peritoneum: There is minimal free pelvic fluid. There is no free air or adenopathy. Musculoskeletal structures: No significant abnormality. IMPRESSION: The right kidney is pelvic.. There is no bowel obstruction, colitis or enteritis. The appendix is normal.. There is an involuting cyst in the left ovary measuring 2.2 centimeters. There is an involuting cyst in the right ovary measuring 3 centimeters.. Remote possibility of tubo-ovarian abscess not excluded. There is a fluid-filled tubular structure adjacent to the right ovary which could be hydrosalpinx or pyosalpinx. There is minimal free pelvic fluid. There is no free air, abscess or adenopathy.. Transcribed By: CO Dictated By: MARIAELENA CASTANEDA MD Electronically Authenticated By: MARIAELENA CASTANEDA MD Signed Date/Time: 02/26/18318 - Medical Decision Making CT Abd and pelvis : mass RLQ with Free fluid consulted ed attending Dr Lindsey, recommendation consult general surgery for dx: acute appendicitis, Dr. Sam paged at this time, discussed findings with patient , pt verbalizes agreement and understanding of tx plan, will follow recommendation of General Surgery. Dr Rhodes: recommendation CT abd/pelvis with po and iv contrast, Lactic Acid, vaginal exam, pt will be moved to private room for same at this time. repeat CT abd and pelvis: no obstruction no appendicitis, ovarian cyst, Vaginal exam Pos CMT, pt tx'd for PID, wet pos trich and clue, plan , left ovarian cyst, and right tuboovarian abscess with PID Paged: OBGYN Dr. Delacruz for admission hand off report: recommendation admit to mother baby dx: PID, Tuboovarianc abscess, tx wtih rocephin 1gm ivpb daily, Doxycycline 100mg iv bid discussed tx plan with patient , patient verbalizeda agreement and understanding of same. Critical care attestation.: If time is entered above; I have spent that time in minutes in the direct care of this critically ill patient, excluding procedure time. ED Disposition Clinical Impression: Tubo-ovarian abscess, PID (acute pelvic inflammatory disease), Trichomonal infection UTI (urinary tract infection) Qualifiers: Urinary tract infection type: acute cystitis Hematuria presence: without hematuria Qualified Code(s): N30.00 - Acute cystitis without hematuria Disposition: OP ADMIT IP TO THIS HOSP Is pt being admited?: Yes Does the pt Need Aspirin: No Condition: Stable Instructions: Abdominal Pain (ED), Pelvic Inflammatory Disease (ED), Trichomoni asis (ED), Urinary Tract Infection in Women (ED) Time of Disposition: 04:22
[2018-02-25] MEDS ORDERED: ROCEPHIN/NS 1 GM/50 ML 1 GM/50 ML BAG IV ONE (22:00)
--- NOTE | 2018-02-25 22:39 | Cat Scan Report ---
FINAL REPORT EXAM: CT ABDOMEN PELVIS WO CON HISTORY: abd pain TECHNIQUE: Helical CT scan through the abdomen and pelvis without contrast. Images are reconstructed in the sagittal and coronal planes. PRIORS: CT scan from 11/11/2017 and pelvic ultrasound from 11/12/2017 FINDINGS: Solid organ and bowel evaluation is limited without intravenous contrast. Bowel evaluation is limited without oral contrast. The lung bases are clear. The liver, gallbladder, pancreas, spleen and adrenal glands appear normal. The kidneys appear grossly normal. The right kidney is in the pelvis and left kidneys in its expected location. As previously demonstrated the uterus is enlarged. Presently, there air and fluid in the vagina. Ther e is a complex cystic lesion in the right lower quadrant with adjacent mild fat edema. The appearance is similar to the previous exam. It is located just inferior to the cecum. The appendix is not discr etely visualized. The stomach appears grossly within normal limits. There are no abnormally dilated loops of bowel. The abdominal aorta has a normal diameter. The bones and subcutaneous soft tissues are unremarkable for age. IMPRESSION: 1. Complex cystic lesion in the right lower quadrant immediately beneath the cecum. There is a small amount of free fluid. The appearance is similar to that demonstrated on the comparison exam and is n onspecific either representing a complex ovarian lesion, a hydrosalpinx or pyosalpinx. Appendicitis i s also in the differential diagnosis the considered to be less likely. Recommend further evaluation w ith ultrasound of the pelvis and right lower quadrant/appendix. 2. Right pelvic kidney
[2018-02-25] MEDS ORDERED: ZOSYN/NS 4.5GM/100ML 4.5 GM/100 ML VIAL IV ONE (22:43)
[2018-02-26] MEDS ORDERED: ZITHROMAX PO ONE (02:18)
[2018-02-26] MEDS ORDERED: FLAGYL PO ONE (02:18)
--- NOTE | 2018-02-26 03:19 | Cat Scan Report ---
FINAL REPORT PROCEDURE: CT ABDOMEN PELVIS W CON TECHNIQUE: Computerized axial tomography of the abdomen and pelvis was performed after the IV inject ion of iodinated nonionic contrast. HISTORY: abdominal pain COMPARISON: 02/25/2018 FINDINGS: Visualized lower thorax: No significant abnormality. Liver: Normal size and attenuation. Spleen: Normal size and attenuation. Gallbladder and biliary system: Normal. Pancreas: Normal. Adrenals: Normal. Kidneys: The right kidney is pelvic.. GI tract: There is no bowel obstruction, colitis or enteritis. The appendix is normal.. Lymph nodes and mesentery: Normal. Vasculature: Normal. Bladder: Normal. Reproductive organs: Uterus is prominent. There is an involuting cyst in the left ovary measuring 2.2 centimeters. There is an involuting cyst in the right ovary measuring 3 centimeters.. Remote possibi lity of tubo-ovarian abscess not excluded. There is a fluid-filled tubular structure adjacent to the right ovary which could be hydrosalpinx or pyosalpinx. Peritoneum: There is minimal free pelvic fluid. There is no free air or adenopathy. Musculoskeletal structures: No significant abnormality. IMPRESSION: The right kidney is pelvic.. There is no bowel obstruction, colitis or enteritis. The appendix is normal.. There is an involuting cyst in the left ovary measuring 2.2 centimeters. There is an involuting cyst in the right ovary measuring 3 centimeters.. Remote possibility of tubo-o varian abscess not excluded. There is a fluid-filled tubular structure adjacent to the right ovary wh ich could be hydrosalpinx or pyosalpinx. There is minimal free pelvic fluid. There is no free air, abscess or adenopathy..
[2018-02-26] MEDS ORDERED: NACL 0.9% 1000 ML 1,000 ML IV ONE (06:42)
[2018-02-26] MEDS ORDERED: PERCOCET 5/325 PO PRN (10:57)
--- NOTE | 2018-02-26 11:32 | History and Physical Report ---
History of Present Illness Date of examination: 02/26/18 Date of admission: 02/26/18 04:25 Chief complaint: abdominal pain History of present illness: 32yo female who presents for right lower quadrant pain 4 days history of same 1 week ago diagnoses UTI patient did not completely antibiotic regimen pain at this time is described as 7/10 aching exacerbated by movement there is no n/v pt is tolerating po intake does endorse nausea and urinary frequency. Past History Past Medical History: no pertinent history Past Surgical History: section Family/Genetic History: none Social history: no significant social history, single. denies: smoking, alcohol abuse, prescription drug abuse Medications and Allergies Allergies Allergy/AdvReac Type Severity Reaction Status Date / Time No Known Allergies Allergy Verified 11/12/17 16:14 Home Medications Medication Instructions Recorded Confirmed Last Taken Type No Known Home Medications [No 02/26/18 02/26/18 Unknown History Reported Home Medications] Active Meds: Active Medications Ceftriaxone Sodium (Rocephin/Ns 1 Gm/50 Ml) 1 gm in 50 mls @ 100 mls/hr IV Q24HR [facility]; Protocol Doxycycline Hyclate 100 mg/ (Sodium Chloride) 250 mls @ 250 mls/hr IV Q12HR [facility]; Protocol Stop: 03/01/18 09:59 Oxycodone/Acetaminophen (Percocet 5/325) 2 tab PO Q4H PRN PRN Reason: Pain, Moderate (4-6) - Vital Signs Vital signs: Vital Signs Temp Pulse Resp BP Pulse Ox 98.9 F 103 H 16 111/63 100 02/25/18 17:09 02/25/18 17:09 02/25/18 17:09 02/25/18 17:09 02/25/18 17:09 Temp Pulse Resp BP Pulse Ox 98.3 F 79 16 105/66 96 02/26/18 10:43 02/26/18 10:43 02/26/18 10:43 02/26/18 10:43 02/26/18 09:51 - Physical Exam Breasts: Positive: normal Cardiovascular: Regular rate, Normal S1 Lungs: Positive: Clear to auscultation, Normal air movement Abdomen: Positive: normal appearance, soft, tenderness, guarding, normal bowel sounds Genitourinary (Female): Positive: normal external genitalia, normal perenium Vagina: Positive: normal moisture Uterus: Positive: enlarged Adnexa: right: mass, tenderness Anus/Rectum: Positive: normal perianal skin Extremities: Positive: normal Results Result Diagrams: 02/25/18 17:23 02/25/18 17:23 Abnormal lab results 02/25/18 02/25/18 02/25/18 Range/Units 17:23 17:23 17:34 WBC 11.5 H (4.5-11.0) K/mm3 MCH 25 L (28-32) pg RDW 17.3 H (13.2-15.2) % Lymph % (Auto) 10.7 L (13.4-35.0) % Seg Neutrophils % 84.4 H (40.0-70.0) % Seg Neutrophils # 9.7 H (1.8-7.7) K/mm3 Potassium 3.4 L (3.6-5.0) mmol/L Glucose 148 H (65-100) mg/dL Urine WBC (Auto) > 182.0 H (0.0-6.0) /HPF U Epithel Cells (Auto) 24.0 H (0-13.0) /HPF All other labs normal. CT scan - abdomen: report reviewed Assessment and Plan A/P HD#1 for PID/UTI treated with rocephin and doxy pain meds close monitor of sx IVF
[2018-02-26] MEDS ORDERED: AMBIEN PO PRN (11:37)
[2018-02-26] MEDS ORDERED: ALUM-MAG HYDROX-SIMETH 200-200-20MG/5ML PO PRN (11:37)
[2018-02-26] MEDS ORDERED: MILK OF MAGNESIA PO PRN (11:37)
[2018-02-26] MEDS ORDERED: BENADRYL PO PRN (11:37)
[2018-02-26] MEDS ORDERED: MYLICON PO PRN (11:37)
[2018-02-26] MEDS ORDERED: TYLENOL PO PRN (11:37)
[2018-02-26] MEDS ORDERED: COLACE PO PRN (11:37)
[2018-02-26] MEDS ORDERED: LACTATED RINGERS 1,000 ML IV SCH (12:00)
[2018-02-26] MEDS: DOXYCYCLINE HYCLATE 100 MG in NACL 0.9% 250ML 250 ML IV SCH ×2 (12:44→23:19)
[2018-02-26] MEDS: ROCEPHIN/NS 1 GM/50 ML 1 GM/50 ML BAG IV SCH (12:45)
[2018-02-26 15:41] LABS: Basophils % (Auto) 0.3 % (0.0-1.8); Eosinophils % (Auto) 0.6 % (0.0-4.3); Hematocrit 33.5 % (30.3-42.9); Hemoglobin 10.7 gm/dl (10.1-14.3); Lymphocytes % (Auto) 17.4 % (13.4-35.0); Mean Corpuscular HGB Conc 32 % (30-34); Mean Corpuscular Volume 78 fl (79-97); Monocytes # (Auto) 0.4 K/mm3 (0.0-0.8); Monocytes % (Auto) 6.3 % (0.0-7.3); Platelet Count 223 K/mm3 (140-440); Red Blood Count 4.28 M/mm3 (3.65-5.03); Red Cell Distribution Width 17.2 % (13.2-15.2)
--- NOTE | 2018-02-27 07:42 | Progress Note ---
Assessment and Plan A/P HD#2 for PID/UTI treated with rocephin and doxy pain meds close monitor of sx IVF afebrile for 24 hrs if remains afebrile for 48 hrs will d/c home on oral abx to f/u in 1-2 weeks Subjective - Subjective Date of service: 02/27/18 Principal diagnosis: pid/uti Interval history: 32yo female who presents for right lower quadrant pain 4 days history of same 1 week ago diagnoses UTI patient did not completely antibiotic regimen pain at this time is described as 7/10 aching exacerbated by movement there is no n/v pt is tolerating po intake does endorse nausea and urinary frequency. Patient reports: appetite normal, voiding normally, pain well controlled, flatus, ambulating normally Objective - Vital Signs Latest vital signs: Vital Signs Temp Pulse Resp BP BP Pulse Ox 02/27/18 00:07 98.3 F 73 123/77 100 02/26/18 19:27 99.0 F 85 100/69 100 02/26/18 17:27 98.6 F 84 20 112/55 02/26/18 10:43 98.3 F 79 16 105/66 02/26/18 09:51 98.3 F 84 16 109/69 96 Intake and Output 02/26/18 02/26/18 02/27/18 15:59 23:59 07:59 Intake Total 270 20 Balance 270 20 Intake: IV 270 20 Doxycycline Hyclate 100 250 mg In NaCl 0.9% 250Ml 250 ml @ 250 mls/hr IV Q12HR [facility] Rx#:[id number] Right Antecubital 20 20 Other: Voiding Method Toilet # Voids Void 1 2 # Bowel Movements 1 Weight 60.872 kg - Exam Breasts: Present: normal Cardiovascular: Present: Regular rate, Normal S1 Lungs: Present: Clear to auscultation, Normal air movement Abdomen: Present: normal appearance, soft, normal bowel sounds. Absent: distention, tenderness, guarding Uterus: Present: normal, firm, fundal height below umbilicus. Absent: bogginess, tenderness Extremities: Present: normal Deep Tendon Reflex Grade: Normal +2 - Labs Labs: Abnormal lab results 02/26/18 Range/Units 15:06 MCV 78 L (79-97) fl MCH 25 L (28-32) pg RDW 17.2 H (13.2-15.2) % Lymph # 1.0 L (1.2-5.4) K/mm3 Seg Neutrophils % 75.4 H (40.0-70.0) %
--- NOTE | 2018-02-27 08:05 | Event Note ---
Date: 02/27/18 shamir reports that she has to go home as there are personal problems with boyfriend and kids. She wants to sign out AMA. Patient encouraged to stay but rx will be given and patient to f/u next week
[2018-02-27 08:44] LABS: Basophils % (Auto) 0.4 % (0.0-1.8); Eosinophils # (Auto) 0.1 K/mm3 (0.0-0.4); Eosinophils % (Auto) 1.3 % (0.0-4.3); Hemoglobin 11.2 gm/dl (10.1-14.3); Lymphocytes # (Auto) 1.9 K/mm3 (1.2-5.4); Lymphocytes % (Auto) 37.1 % (13.4-35.0); Mean Corpuscular HGB Conc 31 % (30-34); Mean Corpuscular Volume 82 fl (79-97); Monocytes # (Auto) 0.4 K/mm3 (0.0-0.8); Monocytes % (Auto) 8.7 % (0.0-7.3); Platelet Count 259 K/mm3 (140-440); Red Blood Count 4.42 M/mm3 (3.65-5.03); Red Cell Distribution Width 17.5 % (13.2-15.2)
[2018-02-27 09:02] VITALS: BP 132/84
[2018-02-27] MEDS: DOXYCYCLINE HYCLATE 100 MG in NACL 0.9% 250ML 250 ML IV SCH (09:05)
[2018-02-27] MEDS: ROCEPHIN/NS 1 GM/50 ML 1 GM/50 ML BAG IV SCH (10:51)
== END 2018-02-27 11:35 | disposition left against medical advice (07) | DRG 758 ==
LOC: ED 16:48 → OB 02-26 04:25
PROVIDERS: ADMIT Obstetrics & Gynecology; ATTEND Obstetrics & Gynecology
DX: N73.0 Acute parametritis and pelvic cellulitis (principal); N30.00 Acute cystitis without hematuria; N70.93 Salpingitis and oophoritis, unspecified; Z53.21 Procedure and treatment not carried out due to patient leaving prior to being seen by health care provider
CPT/HCPCS: 36415; 74176; 74177; 80053; 81001; 82140; 85025; 86850; 86900; 86901; 87086; 87210; 87591; 96361; 96365; 96375; G0378; J0696; J1885; J2405; J2543; J7030; J7050; J7120; Q9967